=== PATIENT | female | born 1990 | race Caucasian/White ===

== ENCOUNTER 2020-12-05 21:52 | Emergency (ER) | payer BC ==
[~2020-12-05] VITALS: Ht 167.6 cm; Wt 59.1 kg
[2020-12-05 21:59] VITALS: Ht 167.6 cm; Wt 59.1 kg
[2020-12-05] MEDS ORDERED: LEXAPRO20 MG PO (22:00)
[2020-12-05] MEDS ORDERED: FLUTICASONE PRO16 GM NASAL (22:00)
[2020-12-05 22:43] LABS: BASOPHILS 0.1 % (0-2); EOSINOPHILS 0.7 % (0-7); HEMATOCRIT 44.4 % (36.0-48.0); HEMOGLOBIN 14.7 g/dL (12-16); IMMATURE GRANULOCYTES 0.1 % (0-5); LYMPHOCYTE ABS# 0.55 10x3/uL (1.18-3.74); LYMPHOCYTES 4.9 % (15-50); MCH 28.2 pg (26.0-34.0); MCHC 33.1 g/dL (31.0-37.0); MCV 85.2 fL (80.0-100.0); MEAN PLATELET VOLUME 11.2 fL (7.4-10.4); NEUTROPHIL ABS# 10.01 10x3/uL (1.56-6.13); NEUTROPHILS 88.2 % (40-80); PLATELET COUNT 239 10x3/uL (130-400); RBC 5.21 10x6/uL (4.00-5.40); RDW 13.1 % (11.5-14.5); WBC 11.3 10x3/uL (4.8-10.8)
[2020-12-05 22:54] LABS: CALC OSMOLALITY 281 mosm/kg (275-300); CALCIUM 8.5 mg/dL (8.5-10.1); CARBON DIOXIDE 24.6 mmol/L (21.0-32.0); CHLORIDE - SERUM 104 mmol/L (98-107); CREATININE - SERUM 0.9 mg/dL (0.6-1.3); GLUCOSE 118 mg/dL (74-106); POTASSIUM - SERUM 3.6 mmol/L (3.5-5.1); SODIUM 141 mmol/L (136-145); UREA NITROGEN 12 mg/dL (7-18); eGFR NON AFRICAN AMERICAN 77 mL/min (90-120)
[2020-12-05 22:58] LABS: ALKALINE PHOSPHATASE 124 U/L (30-120); ALT (SGPT) 16 U/L (10-68); AMYLASE - SERUM 73 U/L (25-115); BILIRUBIN - TOTAL 0.47 mg/dL (0.2-1.3); LIPASE 75 U/L (73-393); PROTEIN - SERUM 7.5 g/dL (6.4-8.2)
[2020-12-05] MEDS ORDERED: ZOFRAN ODT4 MG/UDTAB PO (23:52)
[2020-12-06 00:25] VITALS: BP 118/71
== END 2020-12-06 00:05 | disposition home or self-care (01) ==
LOC: D.ER 21:52
PROVIDERS: Family Medicine
DX: R11.2 Nausea with vomiting, unspecified (principal); R19.7 Diarrhea, unspecified